=== PATIENT | female | born 1950 | race American Indian/Alaskan Native ===

== ENCOUNTER 2018-03-14 20:37 | Inpatient (IN) | payer MEDICARE ==
[2018-03-14 21:19] LABS: Hematocrit 42.2 % (30.3-42.9); Hemoglobin 13.6 gm/dl (10.1-14.3); Mean Corpuscular HGB Conc 32 % (30-34); Mean Corpuscular Hemoglobin 27 pg (28-32); Mean Corpuscular Volume 85 fl (79-97); Platelet Count 228 K/mm3 (140-440); Red Blood Count 4.95 M/mm3 (3.65-5.03); Red Cell Distribution Width 16.1 % (13.2-15.2)
--- NOTE | 2018-03-14 21:57 | XRay Report ---
FINAL REPORT EXAM: XR CHEST ROUTINE 2V HISTORY: sob/cough TECHNIQUE: Two views of the chest Comparison: None FINDINGS: Heart size is within normal limits. There are no focal infiltrates. There is mild bronchial thickening. Costophrenic angles are sharp. There is upper thoracic vertebral body mild wedge of approximately T6. IMPRESSION: No definite focal infiltrate. Mild bronchial thickening may suggest bronchitis. Upper thoracic vertebral body mild wedging.
[2018-03-14 22:30] LABS: BUN/Creatinine Ratio 16; Blood Urea Nitrogen 13 mg/dL (7-17); Calcium 10.2 mg/dL (8.4-10.2); Hemolysis Index 3
[2018-03-15 00:49] LABS: Bilirubin,Urine NEG (Negative); Blood,Urine NEG (Negative); Calcium Oxalate Crystals,Urine 1+; Color,Urine Yellow (Yellow); Mucus,Urine FEW /HPF
[2018-03-15] MEDS ORDERED: NORMODYNE IV ONE (01:05)
--- NOTE | 2018-03-15 01:30 | Emergency Department Report ---
HPI - General Chief Complaint: High BP Time Seen by Provider: 03/15/18 00:58 - HPI HPI: 68-year-old female presents to the emergency department with a complaint of some dizziness and "seeing spots" and for elevated blood pressure. The patient says that she does not have any past medical history but also does not follow with a physician. She saw a urgent care physician about one week ago secondary to elevated blood pressure. The patient got upset earlier today and began having the symptoms mentioned above and had a fall. She told her neighbor who called 911 and the paramedics found the patient to have very elevated blood pressure and tachycardia. She is not on any medications for hypertension. Family is bedside and says that she lost her about 4 months ago and she's been having some emotional issues since that time and that is when the elevated blood pressure started. She denies any current shortness of breath or chest pain but says that she has a 3 month history of a dry cough and sometimes when she coughs she will get some shortness of breath or a twinge of pain. She denies any tobacco use. She does admit to drinking multiple caffeinated sodas per day. No recent travel or sick contacts at home. ED Past Medical Hx - Past Medical History Hx Hypertension: Yes Hx Arthritis: Yes Additional medical history: bronchitis - Surgical History Additional Surgical History: - Social History Smoking Status: Never Smoker Substance Use Type: None ED Review of Systems ROS: Stated complaint: HIGH BLOOD PRESSURE,RIGHT HIP PAIN Other details as noted in HPI Comment: All other systems reviewed and negative Constitutional: denies: chills, fever Eyes: denies: eye pain, eye discharge, vision change ENT: denies: ear pain, throat pain Respiratory: cough. denies: orthopnea Cardiovascular: denies: palpitations, edema Gastrointestinal: denies: abdominal pain, nausea, diarrhea Genitourinary: denies: urgency, dysuria, discharge Musculoskeletal: denies: back pain, joint swelling, arthralgia Skin: denies: rash, lesions Neurological: weakness, other (dizziness) Physical Exam - Physical Exam Vital Signs: Vital Signs 03/14/18 03/15/18 03/15/18 20:42 00:45 01:23 Temperature 99.1 F 98.8 F Pulse Rate 118 H 91 H 89 Respiratory 22 12 Rate Blood Pressure 183/108 Blood Pressure 181/104 196/111 [Right] O2 Sat by Pulse 99 98 Oximetry Physical Exam: GENERAL: The patient is well-developed well-nourished. HENT: Normocephalic. Atraumatic. Patient has moist mucous membranes. EYES: Extraocular motions are intact. Pupils equal reactive to light bilaterally. NECK: Supple. Trachea is midline. CHEST/LUNGS: Clear to auscultation. There is no respiratory distress noted. HEART/CARDIOVASCULAR: Regular. There is no tachycardia. There is no murmur. ABDOMEN: Abdomen is soft, nontender. Patient has normal bowel sounds. There is no abdominal distention. SKIN: Skin is warm and dry. NEURO: The patient is awake, alert, and oriented. The patient is cooperative. The patient has no focal neurologic deficits. The patient has normal speech. MUSCULOSKELETAL: There is no tenderness or deformity. There is no limitation range of motion. There is no evidence of acute injury. ED Course Vital Signs 03/14/18 03/15/18 03/15/18 20:42 00:45 01:23 Temperature 99.1 F 98.8 F Pulse Rate 118 H 91 H 89 Respiratory 22 12 Rate Blood Pressure 183/108 Blood Pressure 181/104 196/111 [Right] O2 Sat by Pulse 99 98 Oximetry ED Medical Decision Making - Lab Data Result diagrams: 03/14/18 21:02 03/14/18 21:02 - EKG Data -: EKG Interpreted by Me EKG shows normal: sinus rhythm, axis (left axis deviation), intervals, QRS complexes (lafb), ST-T waves Rate: tachycardia (123 bpm) - EKG Data When compared to previous EKG there are: previous EKG unavailable Interpretation: other (sinus tachycardia, left anterior fascicular block) - Radiology Data Radiology results: report reviewed, image reviewed interpreted by me: Chest x-ray does not show any acute process. There are no pleural effusions, obvious pneumonia and there is no pneumothorax. PROCEDURE: CT HEAD/BRAIN WO CON TECHNIQUE: Computerized tomography of the head was performed without contrast material. HISTORY: dizziness with very high BP COMPARISON: No prior studies are available for comparison. FINDINGS: Skull and scalp: Normal. Paranasal sinuses: Normal. Ventricles and subarachnoid spaces: Normal. Cerebrum: There is no evidence of acute intracranial hemorrhage, hematoma, infarction, midline displacement or mass. Minimal atrophy is noted.. Cerebellum and brainstem: No evidence of hemorrhage, acute infarction or mass. Vasculature: Normal. Comments: None. IMPRESSION: There is no evidence of an acute intracranial process. Mild atrophy is noted. Transcribed By: [facility] Dictated By: KIKE DIAZ MD Electronically Authenticated By: KIKE DIAZ MD Signed Date/Time: 03/15/18 1523 - Medical Decision Making Patient comes in with the complaint of blood pressure issues, some dizziness and also mentions some intermittent shortness of breath and/or chest discomfort if she coughs. CT of the head does not show any bleed, shift, mass or any acute process. Chest x-ray does not show any acute processes well. EKG does not show any signs of ST elevation [place] or significant dysrhythmia. I attempted to test the patient out walking within the emergency department the patient then began having shortness of breath, developed some chest pain and says she was feeling weak. For this reason, as well as the very elevated blood pressure that she presented with, she will be admitted to the hospital for further evaluation and probable cardial consultation. The patient has been accepted for admission by the hospitalist, Dr. Quezada. - Differential Diagnosis [place], PE, TIA, Hypoglycemia, Dysrythmia Critical Care Time: No Critical care attestation.: If time is entered above; I have spent that time in minutes in the direct care of this critically ill patient, excluding procedure time. ED Disposition Clinical Impression: Hypertensive urgency, Shortness of breath Chest pain Qualifiers: Chest pain type: unspecified Qualified Code(s): R07.9 - Chest pain, unspecified Disposition: 09 OP ADMIT IP TO THIS HOSP Is pt being admited?: Yes Condition: Fair Instructions: Chest Pain (ED) Referrals: NILDA WYMAN MD [Primary Care Provider] - 3-5 Days Time of Disposition: 05:01
--- NOTE | 2018-03-15 03:12 | Cat Scan Report ---
FINAL REPORT PROCEDURE: CT HEAD/BRAIN WO CON TECHNIQUE: Computerized tomography of the head was performed without contrast material. HISTORY: dizziness with very high BP COMPARISON: No prior studies are available for comparison. FINDINGS: Skull and scalp: Normal. Paranasal sinuses: Normal. Ventricles and subarachnoid spaces: Normal. Cerebrum: There is no evidence of acute intracranial hemorrhage, hematoma, infarction, midline displacement or mass. Minimal atrophy is noted.. Cerebellum and brainstem: No evidence of hemorrhage, acute infarction or mass. Vasculature: Normal. Comments: None. IMPRESSION: There is no evidence of an acute intracranial process. Mild atrophy is noted.
[2018-03-15] MEDS ORDERED: BABY ASPIRIN PO ONE (04:01)
[2018-03-15] MEDS ORDERED: ZOFRAN IV PRN (04:58)
[2018-03-15] MEDS ORDERED: SODIUM CHLORIDE FLUSH SYRINGE 10 ML IV PRN (04:58)
[2018-03-15] MEDS ORDERED: TYLENOL PO PRN (04:58)
[2018-03-15] MEDS ORDERED: MORPHINE IV PRN (04:58)
[2018-03-15 05:35] LABS: Creatine Kinase MB 1.8 ng/mL (0.0-4.0)
[2018-03-15 10:14] LABS: Creatine Kinase MB 1.8 ng/mL (0.0-4.0)
[2018-03-15] MEDS ORDERED: LOVENOX SUB-Q ONE (10:24)
[2018-03-15] MEDS: SODIUM CHLORIDE FLUSH SYRINGE 10 ML IV SCH ×2 (10:43→22:07)
[2018-03-15] MEDS: LOVENOX SUB-Q SCH (10:43)
[2018-03-15] MEDS ORDERED: FLONASE NS PRN (17:11)
[2018-03-15] MEDS ORDERED: APRESOLINE IV PRN (17:12)
[2018-03-15] MEDS: HCTZ PO SCH (18:54)
[2018-03-15] MEDS: NORVASC PO SCH (18:54)
[2018-03-16 06:11] LABS: Basophils # (Auto) 0.1 K/mm3 (0.0-0.1); Basophils % (Auto) 0.9 % (0.0-1.8); Eosinophils # (Auto) 0.1 K/mm3 (0.0-0.4); Eosinophils % (Auto) 1.6 % (0.0-4.3); Hematocrit 40.3 % (30.3-42.9); Hemoglobin 13.7 gm/dl (10.1-14.3); Lymphocytes # (Auto) 1.7 K/mm3 (1.2-5.4); Lymphocytes % (Auto) 26.7 % (13.4-35.0); Mean Corpuscular HGB Conc 34 % (30-34); Mean Corpuscular Hemoglobin 29 pg (28-32); Mean Corpuscular Volume 84 fl (79-97); Monocytes # (Auto) 0.6 K/mm3 (0.0-0.8); Platelet Count 204 K/mm3 (140-440); Red Blood Count 4.79 M/mm3 (3.65-5.03); Red Cell Distribution Width 16.2 % (13.2-15.2)
[2018-03-16 06:34] LABS: BUN/Creatinine Ratio 13; Blood Urea Nitrogen 10 mg/dL (7-17); Calcium 9.9 mg/dL (8.4-10.2); Hemolysis Index 6
[2018-03-16] MEDS ORDERED: LEXISCAN IV ONE (08:37)
[2018-03-16] MEDS ORDERED: ZOFRAN ONE (09:38)
[2018-03-16 10:00] VITALS: BP 157/87
[2018-03-16] MEDS: HCTZ PO SCH (11:08)
[2018-03-16] MEDS: LOVENOX SUB-Q SCH (11:09)
[2018-03-16] MEDS: SODIUM CHLORIDE FLUSH SYRINGE 10 ML IV SCH (11:10)
[2018-03-16] MEDS: NORVASC PO SCH (11:10)
[2018-03-16] MEDS ORDERED: PNEUMOVAX 23 IM ONE (12:00)
--- NOTE | 2018-03-16 16:13 | Progress Note ---
Assessment and Plan Assessment and plan: Patient comes in with the complaint of blood pressure issues, some dizziness and also mentions some intermittent shortness of breath and/or chest discomfort if she coughs. CT of the head does not show any bleed, shift, mass or any acute process. Chest x-ray does not show any acute processes well. EKG does not show any signs of ST elevation [place] or significant dysrhythmia. I attempted to test the patient out walking within the emergency department the patient then began having shortness of breath, developed some chest pain and says she was feeling weak. For this reason, as well as the very elevated blood pressure that she presented with, she will be admitted to the hospital for further evaluation and probable cardial consultation. The patient has been accepted for admission by the hospitalist, Dr. Quezada. Hospitalist Physical - Constitutional Vitals: Temp Pulse Resp BP Pulse Ox 97.6 F 114 H 18 157/87 94 03/16/18 05:59 03/16/18 09:10 03/16/18 05:59 03/16/18 09:10 03/16/18 05:59 Results - Labs CBC & Chem 7: 03/16/18 05:35 03/16/18 05:35 Labs: Laboratory Last Values WBC 6.4 K/mm3 (4.5-11.0) 03/16/18 05:35 RBC 4.79 M/mm3 (3.65-5.03) 03/16/18 05:35 Hgb 13.7 gm/dl (10.1-14.3) 03/16/18 05:35 Hct 40.3 % (30.3-42.9) 03/16/18 05:35 MCV 84 fl (79-97) 03/16/18 05:35 MCH 29 pg (28-32) 03/16/18 05:35 MCHC 34 % (30-34) 03/16/18 05:35 RDW 16.2 % (13.2-15.2) H 03/16/18 05:35 Plt Count 204 K/mm3 (140-440) 03/16/18 05:35 Lymph % (Auto) 26.7 % (13.4-35.0) 03/16/18 05:35 [place] % (Auto) 10.0 % (0.0-7.3) H 03/16/18 05:35 Eos % (Auto) 1.6 % (0.0-4.3) 03/16/18 05:35 Baso % (Auto) 0.9 % (0.0-1.8) 03/16/18 05:35 Lymph # 1.7 K/mm3 (1.2-5.4) 03/16/18 05:35 [place] # 0.6 K/mm3 (0.0-0.8) 03/16/18 05:35 Eos # 0.1 K/mm3 (0.0-0.4) 03/16/18 05:35 Baso # 0.1 K/mm3 (0.0-0.1) 03/16/18 05:35 Seg Neutrophils % 60.8 % (40.0-70.0) 03/16/18 05:35 Seg Neutrophils # 3.9 K/mm3 (1.8-7.7) 03/16/18 05:35 D-Dimer 208.99 ng/mlDDU (0-234) 03/15/18 01:28 Sodium 140 mmol/L (137-145) 03/16/18 05:35 Potassium 3.9 mmol/L (3.6-5.0) 03/16/18 05:35 Chloride 100.5 mmol/L (98-107) 03/16/18 05:35 Carbon Dioxide 26 mmol/L (22-30) 03/16/18 05:35 Anion Gap 17 mmol/L 03/16/18 05:35 BUN 10 mg/dL (7-17) 03/16/18 05:35 Creatinine 0.8 mg/dL (0.7-1.2) 03/16/18 05:35 Estimated GFR > 60 ml/min 03/16/18 05:35 BUN/Creatinine Ratio 13 % 03/16/18 05:35 Glucose 111 mg/dL (65-100) H 03/16/18 05:35 Calcium 9.9 mg/dL (8.4-10.2) 03/16/18 05:35 Total Creatine Kinase 155 units/L (30-135) H 03/15/18 09:35 CK-MB (CK-2) 1.8 ng/mL (0.0-4.0) 03/15/18 09:35 CK-MB (CK-2) Rel Index 1.1 (0-4) 03/15/18 09:35 Troponin T < 0.010 ng/mL (0.00-0.029) 03/15/18 09:35 Urine Color Yellow (Yellow) 03/14/18 Unknown Urine Turbidity Clear (Clear) 03/14/18 Unknown Urine pH 5.0 (5.0-7.0) 03/14/18 Unknown Ur Specific [place] 1.021 (1.003-1.030) 03/14/18 Unknown Urine Protein 30 mg/dl mg/dL (Negative) 03/14/18 Unknown Urine Glucose (UA) Neg mg/dL (Negative) 03/14/18 Unknown Urine Ketones Neg mg/dL (Negative) 03/14/18 Unknown Urine Blood Neg (Negative) 03/14/18 Unknown Urine Nitrite Neg (Negative) 03/14/18 Unknown Urine Bilirubin Neg (Negative) 03/14/18 Unknown Urine Urobilinogen 2.0 mg/dL (<2.0) 03/14/18 Unknown Ur Leukocyte Esterase Sm (Negative) 03/14/18 Unknown Urine WBC (Auto) 2.0 /HPF (0.0-6.0) 03/14/18 Unknown Urine RBC (Auto) 4.0 /HPF (0.0-6.0) 03/14/18 Unknown U Epithel Cells (Auto) 1.0 /HPF (0-13.0) 03/14/18 Unknown Calcium Oxalate Crystal 1+ 03/14/18 Unknown Urine Mucus Few /HPF 03/14/18 Unknown
--- NOTE | 2018-03-16 16:19 | Discharge Summary ---
Providers - Providers Date of Admission: 03/15/18 04:58 Attending physician: TAINA BROUSSARD MD Primary care physician: NILDA WYMAN Hospitalization Condition: Fair Hospital course: Patient comes in with the complaint of blood pressure issues, some dizziness and also mentions some intermittent shortness of breath and/or chest discomfort if she coughs. CT of the head does not show any bleed, shift, mass or any acute process. Chest x-ray does not show any acute processes well. EKG does not show any signs of ST elevation [place] or significant dysrhythmia. I attempted to test the patient out walking within the emergency department the patient then began having shortness of breath, developed some chest pain and says she was feeling weak. For this reason, as well as the very elevated blood pressure that she presented with, she will be admitted to the hospital for further evaluation and probable cardial consultation. The patient has been accepted for admission by the hospitalist, Dr. Quezada. Disposition: DC- TO HOME OR SELFCARE Time spent for discharge: 33 minutes Core Measure Documentation - Palliative Care Palliative Care/ Comfort Measures: Not Applicable - Core Measures Any of the following diagnoses?: none Exam - Constitutional Vitals: Temp Pulse Resp BP Pulse Ox 97.6 F 114 H 18 157/87 94 03/16/18 05:59 03/16/18 09:10 03/16/18 05:59 03/16/18 09:10 03/16/18 05:59 General appearance: Present: no acute distress, well-nourished - EENT Eyes: Present: PERRL ENT: hearing intact, clear oral mucosa - Neck Neck: Present: supple, normal ROM - Respiratory Respiratory effort: normal Respiratory: bilateral: CTA - Cardiovascular Heart Sounds: Present: S1 & S2. Absent: rub, click - Extremities Extremities: pulses symmetrical, No edema Peripheral Pulses: within normal limits - Abdominal General gastrointestinal: Present: soft, non-tender, non-distended, normal bowel sounds Female genitourinary: Present: normal - Integumentary Integumentary: Present: clear, warm, dry - Musculoskeletal Musculoskeletal: gait normal, strength equal bilaterally - Psychiatric Psychiatric: appropriate mood/affect, intact judgment & insight - Neurologic Neurologic: CNII-XII intact, moves all extremities Plan Follow up with: NILDA WYMAN MD [Primary Care Provider] - 3-5 Days Prescriptions: amLODIPine [Norvasc] 10 mg PO QDAY #30 tablet Hydrochlorothiazide [HCTZ] 25 mg PO QDAY #30 tablet
--- NOTE | 2018-03-16 23:31 | Treadmill Report ---
NUCLEAR CARDIAC IMAGING INDICATION FOR PROCEDURE: Chest pain. Informed consent was obtained. Vasodilator stress was achieved with the intravenous administration of 0.4 mg of Lexiscan per protocol. Rest and stress nuclear cardiac imaging was performed following the intravenous administration of 10 mCi and 28 mCi of technetium 99m Myoview per protocol, respectively. Imaging was obtained in a 180-degree arc from 45 degrees [place] to 45 degrees LPO. After data acquisition and reconstruction, the images were processed and reoriented into the vertical long, horizontal long, and horizontal short axis slices. A polar color map of the horizontal short axis slices was generated and reviewed. The rotating planar images were reviewed in cinematic format on the computer console. Gated SPECT imaging demonstrates a post-stress left ventricular ejection fraction of 76% with normal wall motion. Myocardial perfusion imaging demonstrates no significant cavity change between stress and rest. No significant stress-induced perfusion defects are seen. Nuclear cardiac imaging demonstrates grossly normal post-stress left ventricular systolic function with no significant evidence for myocardial ischemia or necrosis. [facility]# [id number] ROBERT/OZIEL
--- NOTE | 2018-03-18 07:05 | History and Physical Report ---
HISTORY OF PRESENT ILLNESS: This is a 68-year-old woman with a history of hypertension, comes to the Emergency Room because she has been feeling dizzy. She checked her blood pressure and it was very elevated. Also, complained of chest pain in the epigastric area, which she describes as a dull pain, intermittent in nature, unable to say how long it lasts for, intensity 5/10, no radiation, she cannot identify exacerbating or relieving factors. The patient is noncompliant with her antihypertensives. She denies nausea, vomiting, shortness of breath, diaphoresis or palpitation. REVIEW OF SYSTEMS: CONSTITUTIONAL: No weight loss, chills. HEENT: No nasal congestion, discharge, sinus pressure, vision change or red eye. NECK: No neck pain or rigidity. CARDIOVASCULAR: No palpitations. RESPIRATORY: No cough. GASTROINTESTINAL: No abdominal pain, hematochezia. GENITOURINARY: No dysuria, frequency or hematuria. MUSCULOSKELETAL: No joint pain or muscle aches. SKIN: No rash, pruritus. Neurological: No paraesthesia, numbness or focal weakness. ENDOCRINE: No hot or cold intolerance, polydipsia, polyuria HEMATOLOGY: No easy bruising, bleeding. ALLERGY: No urticaria, angioedema. PAST MEDICAL HISTORY: Hypertension. PAST SURGICAL HISTORY: . SOCIAL HISTORY: Denies alcohol, tobacco, or drugs. FAMILY HISTORY: Hypertension. PHYSICAL EXAMINATION: VITAL SIGNS: Blood pressure 196/111 with a pulse 91, respirations 18, temperature 98.8. GENERAL APPEARANCE: The patient lying in bed, no acute distress. HEENT: Normocephalic, atraumatic. Pupils equal, round, reactive to light. Extraocular movement is intact. No scleral icterus. No JVD. No thyromegaly or nodule. NECK: Supple, no carotid bruit. HEART: S1, S2 regular rate and rhythm. LUNGS: Clear to auscultation bilateral. Breathing comfortable. ABDOMEN: Positive bowel sounds, nontender, nondistended. EXTREMITIES: No edema, cyanosis or clubbing. SKIN: No rash. Warm and dry. NEUROLOGIC: Oriented x3. Cranial nerves 2-12 intact. Speech is fluent. Labs are as follows: White count 7.5, hemoglobin 13.6, hematocrit 42.2, and platelet of 228. Sodium 142, potassium 4.4, chloride 104, bicarbonate 25, BUN 13, creatinine 0.8, glucose 122. UA is normal. CT head normal. Chest x-ray normal. EKG reviewed. ASSESSMENT: 1. Hypertensive urgency. 2. Chest pain, most likely secondary to #1. PLAN: 1. Admit to medicine. 2. Check cardiac enzymes. Stress test, IV hydralazine as needed for blood pressure control. 3. Start aspirin, IV morphine. 4. Deep venous prophylaxis. JOB# [id number] AES/NTS
== END 2018-03-16 18:29 | disposition home or self-care (01) | DRG 305 ==
LOC: ED 20:37 → 4A 03-15 04:58
PROVIDERS: ADMIT Internal Medicine; ATTEND Internal Medicine
DX: I16.0 Hypertensive urgency (principal); M19.90 Unspecified osteoarthritis, unspecified site; I10 Essential (primary) hypertension
CPT/HCPCS: 36415; 70450; 71046; 78452; 80048; 81001; 82550; 82553; 84484; 85025; 85027; 85379; 90732; 93005; 93010; 93017; 96374; 99285; A9502; J0360; J1650; J2405; J2785